=== PATIENT | male | born 1960 ===

== ENCOUNTER 2023-05-07 16:07 | Outpatient (REF) | payer BC, SELFPAY ==
[2023-05-07 22:04] LABS: TSH 4.17 uIU/mL (0.36-3.74)
== END 2023-05-07 16:08 | disposition home or self-care (01) ==
LOC: NCHCN 16:07
PROVIDERS: Visit Provider Internal Medicine
DX: E03.9 Hypothyroidism, unspecified (principal)
CPT/HCPCS: 84443

== ENCOUNTER 2023-07-09 16:14 | Outpatient (REF) | payer BC, SELFPAY ==
[2023-07-09 21:39] LABS: TSH 1.78 uIU/Ml (0.36-3.74)
== END 2023-07-09 16:15 | disposition home or self-care (01) ==
LOC: NCHCN 16:14
PROVIDERS: Visit Provider Internal Medicine
DX: E03.9 Hypothyroidism, unspecified (principal)
CPT/HCPCS: 84443

== ENCOUNTER 2023-12-30 14:10 | Outpatient (REF) | payer BC, SELFPAY ==
[2023-12-30 14:35] LABS: ALT 39 U/L (16-63); AST 34 U/L (15-37); Albumin 3.9 g/dL (3.4-5.0); Alkaline Phosphatase 65 U/L (46-116); Anion Gap 4.3 mmol/L (3-11); BUN 18 mg/dL (7-18); Bilirubin, Total 1.04 mg/dL (0.2-1.0); CO2 31.7 mmol/L (21.0-32.0); Calcium 9.2 mg/dL (8.5-10.1); Calculated LDL 44 mg/dL (<100); Chloride 106 mmol/L (98-107); Cholesterol 135 mg/dL (<200); Estimated GFR 85.63 (mL/min/1.73m2); Glucose 85 mg/dL (74-106); HDL Cholesterol 78 mg/dL (40-60); Potassium 4.3 mmol/L (3.5-5.1); Sodium 142 mmol/L (136-145); TSH 3.55 uIU/Ml (0.36-3.74); Total Protein 6.9 g/dL (6.4-8.2); Triglyceride 66 mg/dL (<150)
== END 2023-12-30 14:11 | disposition home or self-care (01) ==
LOC: NCHCN 14:10
PROVIDERS: PCP Internal Medicine; Visit Provider Internal Medicine
DX: E78.5 Hyperlipidemia, unspecified (principal); E03.9 Hypothyroidism, unspecified; Z00.00 Encounter for general adult medical examination without abnormal findings
CPT/HCPCS: 80053; 80061; 84443

== ENCOUNTER 2024-07-08 08:45 | Outpatient (REF) | payer BC, SELFPAY ==
[2024-07-08 15:34] LABS: TSH 3.13 uIU/mL (0.36-3.74)
== END 2024-07-08 08:46 | disposition home or self-care (01) ==
LOC: NCHCN 08:45
PROVIDERS: PCP Internal Medicine; Visit Provider Internal Medicine
DX: E03.9 Hypothyroidism, unspecified (principal)
CPT/HCPCS: 84443

== ENCOUNTER 2024-07-12 14:11 | Outpatient (REF) | payer BC, SELFPAY ==
[2024-07-12 22:26] LABS: PSA, Screening 0.5 ng/mL (<=4.5)
== END 2024-07-12 14:12 | disposition home or self-care (01) ==
LOC: NCHCN 14:11
PROVIDERS: PCP Internal Medicine; Visit Provider Internal Medicine
DX: Z12.5 Encounter for screening for malignant neoplasm of prostate (principal)
CPT/HCPCS: 84153

== ENCOUNTER 2025-01-05 15:05 | Outpatient (REF) | payer BC, SELFPAY ==
[2025-01-05 15:14] LABS: TSH 3.07 uIU/mL (0.36-3.74)
== END 2025-01-05 15:06 | disposition home or self-care (01) ==
LOC: NCHCN 15:05
PROVIDERS: PCP Internal Medicine; Visit Provider Internal Medicine
DX: E03.9 Hypothyroidism, unspecified (principal)
CPT/HCPCS: 84443